=== PATIENT | male | born 1990 ===

== ENCOUNTER 2018-08-05 10:29 | Emergency (ER) | payer OTHER, SELFPAY ==
[2018-08-05 10:30] VITALS: BP 113/74; PULSE 68; RESP 12; TEMP 36.2; O2SAT 99
--- NOTE | 2018-08-05 10:56 | ED_ITS ---
HPI - General Adult General Chief complaint: Blood/Body fluid exposure Stated complaint: EXPOSURE TO BODILY FLUIDS Time Seen by Provider: 08/05/18 10:56 Source: patient Mode of arrival: ambulatory Limitations: no limitations History of Present Illness HPI narrative: 28-year-old otherwise healthy active [employer] min here for evaluation for potential blood borne pathogen exposure. 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 When the patient arrived there he did perform chest compressions. He also performed respiratory support with a bag-valve mask and also [id number] resuscitation however this was done with a barrier method. Patient was not stuck with any needles. They state that the individual did have respiratory secretions and they also states that after the unsuccessful resuscitation attempt the IV that was placed came out and there was blood in the area. 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 Is all up-to-date on immunizations. Review of Systems Review of Systems All systems reviewed & are unremarkable except as noted in HPI and below [facility] Medical History Healthy adult (Acute) Surgical History No pertinent past surgical history (Acute) Exam Initial Vital Signs Initial Vital Signs: Vital Signs Temperature 97.2 F L 08/05/18 10:30 Pulse Rate 68 08/05/18 10:30 Respiratory Rate 12 08/05/18 10:30 Blood Pressure 113/74 08/05/18 10:30 Pulse Oximetry 99 08/05/18 10:30 Const General: cooperative, healthy appearing, comfortable, well developed, well groomed and No acute distress Orientation: alert, awake and oriented x3 HENMT Head: normal to inspection and normocephalic Resp Effort & Inspection: normal respiratory effort Skin Lesions: no lesions Rashes: no rashes Neuro General: alert, awake and oriented x3 Cognition: normal cognition Speech: speech normal Extrem General: normal to inspection and full ROM Psych Appearance: grossly normal and well kempt Course Vital Signs - 8 hr 08/05/18 10:30 Temperature 97.2 F L Pulse Rate 68 Respiratory Rate 12 Blood Pressure 113/74 Pulse Oximetry 99 Medical Decision Making [facility] Narrative Medical decision making narrative: Patient is extremely low risk for blood borne pathogen exposure. I recommended to the patient that no blood work be done here in the emergency department. 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 I asked the embossing unit operator if he had the policy with him which he did not. I asked the embossing unit operator what blood test that they would like me to draw all in the corner and he did not have any answer. I informed the embossing unit operator that I felt like that the individuals did not need any blood drawn. The patient's did not want any blood drawn. I informed him that I would be happy to draw all labs and help them out if he had a list of what they wanted. He was unable to produce this list and so the patient's wanted to be discharged to be taken to their medical facility to have this done. The patient's were given return precautions. Discharge Plan Departure Patient Disposition: Home Clinical Impression: Normal exam Discharge Date/Time: 08/05/18 12:13 Interventions: ED Discharge Assessment Last Done: 08/05/18 12:11 Instructions: DI for Accidental Exposure to Body Fluids Activity Restrictions/Additional Instructions: You're exposure today was extremely low risk for developing a blood borne pathogen infections. You have no restrictions on activity.
--- NOTE | 2018-08-05 11:52 | PC.NURSE ---
Pt in [employer]. Was performing CPR and rescue breaths with mask device. No contact with bodily fluids was noticed. Sent by [facility] for exposure panel.
== END 2018-08-05 12:13 | disposition home or self-care (01) ==
PROVIDERS: Emergency Provider Emergency Medicine
DX: Z71.1 Person with feared health complaint in whom no diagnosis is made (principal)
CPT/HCPCS: 99282